=== PATIENT | female | born 2000 | race Caucasian/White ===

== ENCOUNTER 2021-03-10 08:55 | Emergency (ER) | payer OTHER ==
--- NOTE | 2021-03-10 09:19 | EDM.PDOC ---
ED HPI GENERAL MEDICAL PROBLEM - General Chief Complaint: Abdominal Pain Stated Complaint: PAIN W/ Time Seen by Provider: 03/10/21 09:14 Source of Information: Reports: Patient History Limitations: Reports: No Limitations - History of Present Illness INITIAL COMMENTS - FREE TEXT/NARRATIVE: pt is at 11 weeks with EDC september 28 , comes in with c/o sever right mila ed and epigastric abd pain since 4 am this morning that woke her from sleep, report recurrent emesis also diarrhea this morning, denies fever chills or any other associated sx or concerns. pt has hx of depression, anxiety and asthma. 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 Denies: Fever HEENT: Reports: No Symptoms Respiratory: Reports: No Symptoms Cardiovascular: Reports: No Symptoms GI/Abdominal: Reports: Abdominal Pain, Diarrhea, Nausea, Vomiting Musculoskeletal: Reports: No Symptoms Skin: Reports: No Symptoms Neurological: Reports: No Symptoms ED EXAM, GENERAL - Physical Exam Exam: See Below Exam Limited By: No Limitations General Appearance: Alert, No Apparent Distress Eye Exam: Bilateral Eye: Normal Inspection Nose: Normal Inspection, Normal Mucosa Throat/Mouth: Normal Inspection, Normal Oropharynx Head: Atraumatic, Normocephalic Neck: Normal Inspection, Supple Respiratory/Chest: No Respiratory Distress, Lungs Clear, No Accessory Muscle Use Cardiovascular: Normal Peripheral Pulses, Regular Rate, Rhythm, No Murmur GI/Abdominal: Normal Bowel Sounds, Soft, Tender (at right lower quadrant and at epigastic area. ) Extremities: Normal Inspection, Normal Range of Motion Neurological: Alert, Oriented, No Motor/Sensory Deficits Psychiatric: Anxious Skin Exam: Warm, Dry Course - Vital Signs Text/Narrative:: unremarkable labs were explained to pt , US shows no signs of acute abd , no ectopis , gestational sac is nl. pt has non specific symptoms of GI colic , she is comfortable here now after fluids, morphine and zofran. she is stable for discharge home with supportive mng. Last Recorded V/S: Last Vital Signs Temp 36.6 C 03/10/21 08:55 Pulse 72 03/10/21 08:55 Resp 20 03/10/21 08:55 BP 97/47 L 03/10/21 08:55 Pulse Ox 97 03/10/21 08:55 - Orders/Labs/Meds Orders: Active Orders 24 hr Category Date Time Status Abdomen Ltd [US] Stat Exams 03/10/21 14:23 Ordered OB 1st Tri Sgl 1st Gest [US] Stat Exams 03/10/21 14:23 Ordered HCG QUANTITATIVE [CHEM] Stat Lab 03/10/21 10:00 Received PATIENT RETYPE [BBK] Stat Lab 03/10/21 10:00 Results TYPE AND SCREEN [BBK] Stat Lab 03/10/21 10:00 Results Sodium Chloride 0.9% [Normal Saline] 1,000 ml Med 03/10/21 09:30 Active IV ASDIRECTED Medication Orders Sodium Chloride (Normal Saline) 1,000 mls @ 0 mls/hr IV ASDIRECTED CORTEZ Stop: 03/14/21 09:21 Last Admin: 03/10/21 11:51 Dose: 150 mls/hr Documented by: Infusion: 03/10/21 10:33 Dose: 999 mls/hr Documented by: Admin: 03/10/21 09:32 Dose: 999 mls/hr Documented by: AVELINA Labs: Laboratory Tests 03/10/21 03/10/21 03/10/21 Range/Units 09:52 09:52 09:52 WBC 9.7 (3.0-10.3) x10-3/uL RBC 4.35 (3.60-5.20) x10(6)uL Hgb 12.3 (11.4-15.5) g/dL Hct 37.4 (34.2-48.2) % MCV 86.0 (76.7-100.5) fL MCH 28.3 (23.9-33.9) pg MCHC 32.9 (31.9-34.8) g/dL RDW 13.7 (12.3-16.5) % Plt Count 213 (151-488) x10(3)uL MPV 9.7 (7.1-12.4) fL Neut % (Auto) 85.7 H (30.8-76.2) % Lymph % (Auto) 8.8 L (18.4-52.1) % [place] % (Auto) 4.8 (4.4-15.7) % Eos % (Auto) 0.4 L (0.6-8.1) % Baso % (Auto) 0.3 (0.2-1.5) % Neut # (Auto) 8.3 H (1.5-6.3) x10-3/uL Lymph # (Auto) 0.9 L (1.0-4.4) x10-3/uL [place] # (Auto) 0.5 (0.3-1.0) x10-3/uL Eos # (Auto) 0.0 (0.0-0.8) x10-3/uL Baso # (Auto) 0.0 (0.0-0.1) x10-3/uL Sodium 136 (135-145) mmol/L Potassium 3.7 (3.5-5.3) mmol/L Chloride 103 (100-110) mmol/L Carbon Dioxide 24 (21-32) mmol/L BUN 8 (7-18) mg/dL Creatinine 0.8 (0.55-1.02) mg/dL Est Cr Clr Drug Dosing 112.45 mL/min Estimated GFR (MDRD) > 60 (>60) BUN/Creatinine Ratio 10.0 (9-20) Glucose 109 (80-116) mg/dL Calcium 8.5 L (8.6-10.2) mg/dL Total Bilirubin 0.6 (0.1-1.3) mg/dL AST 13 (5-25) IU/L ALT 24 (12-36) U/L Alkaline Phosphatase 51 L (56-112) IU/L Total Protein 6.9 (6.0-8.0) g/dL Albumin 3.6 (3.5-5.2) g/dL Globulin 3.3 g/dL Albumin/Globulin Ratio 1.1 Amylase 58 (25-115) U/L Lipase 116 (73-393) U/L Urine Color (YELLOW) Urine Appearance (CLEAR) Urine pH (5.0-6.5) Ur Specific [place] (1.010-1.025) Urine Protein (NEGATIVE) mg/dL Urine Glucose (UA) (NORMAL) mg/dL Urine Ketones (NEGATIVE) mg/dL Urine Occult Blood (NEGATIVE) Urine Nitrite (NEGATIVE) Urine Bilirubin (NEGATIVE) Urine Urobilinogen (NEGATIVE) mg/dL Ur Leukocyte Esterase (NEGATIVE) Urine RBC (0-5) Urine WBC (0-5) Ur Squamous Epith Cells (NS,R,O) Amorphous Sediment Urine Bacteria (NS) Blood Type Gel Antibody Screen 03/10/21 03/10/21 Range/Units 10:00 10:36 WBC (3.0-10.3) x10-3/uL RBC (3.60-5.20) x10(6)uL Hgb (11.4-15.5) g/dL Hct (34.2-48.2) % MCV (76.7-100.5) fL MCH (23.9-33.9) pg MCHC (31.9-34.8) g/dL RDW (12.3-16.5) % Plt Count (151-488) x10(3)uL MPV (7.1-12.4) fL Neut % (Auto) (30.8-76.2) % Lymph % (Auto) (18.4-52.1) % [place] % (Auto) (4.4-15.7) % Eos % (Auto) (0.6-8.1) % Baso % (Auto) (0.2-1.5) % Neut # (Auto) (1.5-6.3) x10-3/uL Lymph # (Auto) (1.0-4.4) x10-3/uL [place] # (Auto) (0.3-1.0) x10-3/uL Eos # (Auto) (0.0-0.8) x10-3/uL Baso # (Auto) (0.0-0.1) x10-3/uL Sodium (135-145) mmol/L Potassium (3.5-5.3) mmol/L Chloride (100-110) mmol/L Carbon Dioxide (21-32) mmol/L BUN (7-18) mg/dL Creatinine (0.55-1.02) mg/dL Est Cr Clr Drug Dosing mL/min Estimated GFR (MDRD) (>60) BUN/Creatinine Ratio (9-20) Glucose (80-116) mg/dL Calcium (8.6-10.2) mg/dL Total Bilirubin (0.1-1.3) mg/dL AST (5-25) IU/L ALT (12-36) U/L Alkaline Phosphatase (56-112) IU/L Total Protein (6.0-8.0) g/dL Albumin (3.5-5.2) g/dL Globulin g/dL Albumin/Globulin Ratio Amylase (25-115) U/L Lipase (73-393) U/L Urine Color Yellow (YELLOW) Urine Appearance Cloudy (CLEAR) Urine pH 9.0 H (5.0-6.5) Ur Specific [place] 1.015 (1.010-1.025) Urine Protein Negative (NEGATIVE) mg/dL Urine Glucose (UA) Normal (NORMAL) mg/dL Urine Ketones 15 H (NEGATIVE) mg/dL Urine Occult Blood Negative (NEGATIVE) Urine Nitrite Negative (NEGATIVE) Urine Bilirubin Negative (NEGATIVE) Urine Urobilinogen Normal (NEGATIVE) mg/dL Ur Leukocyte Esterase Negative (NEGATIVE) Urine RBC 0-5 (0-5) Urine WBC 5-10 H (0-5) Ur Squamous Epith Cells Moderate H (NS,R,O) Amorphous Sediment Many Urine Bacteria Moderate H (NS) Blood Type A POSITIVE Gel Antibody Screen Negative Meds: Medications Generic Name Dose Route Start Last Admin Trade Name Freq PRN Reason Stop Dose Admin Sodium Chloride 1,000 mls @ 0 mls/hr 03/10/21 09:30 03/10/21 11:51 Normal Saline IV 03/14/21 09:21 150 mls/hr ASDIRECTED CORTEZ Administration KVO Discontinued Medications Generic Name Dose Route Start Last Admin Trade Name Freq PRN Reason Stop Dose Admin Morphine Sulfate 2 mg 03/10/21 09:21 03/10/21 09:33 Morphine 2 Mg/Ml Syringe IVPUSH 03/10/21 09:22 2 mg ONETIME ONE Administration Morphine Sulfate 4 mg 03/10/21 11:35 03/10/21 11:45 Morphine 4 Mg/Ml Vial IVPUSH 03/10/21 11:36 4 mg ONETIME ONE Administration Morphine Sulfate 4 mg 03/10/21 13:24 03/10/21 13:42 Morphine 4 Mg/Ml Vial IVPUSH 03/10/21 13:25 4 mg ONETIME ONE Administration Ondansetron HCl 4 mg 03/10/21 09:21 03/10/21 09:32 Ondansetron 4 Mg/2 Ml Sdv IVPUSH 03/10/21 09:22 4 mg ONETIME ONE Administration Departure - Departure Time of Disposition: 15:30 Disposition: Home, Self-Care 01 Clinical Impression: Colic in adult - Discharge Information Forms: ED Department Discharge Sepsis Event Note (ED) - Evaluation Sepsis Screening Result: No Definite Risk - Focused Exam Vital Signs: Vital Signs Temp Pulse Resp BP Pulse Ox 03/10/21 08:55 36.6 C 72 20 97/47 L 97 - My Orders Last 24 Hours: My Active Orders 03/10/21 09:30 Sodium Chloride 0.9% [Normal Saline] 1,000 ml IV ASDIRECTED 03/10/21 10:00 HCG QUANTITATIVE [CHEM] Stat PATIENT RETYPE [BBK] Stat TYPE AND SCREEN [BBK] Stat 03/10/21 14:23 Abdomen Ltd [US] Stat OB 1st Tri Sgl 1st Gest [US] Stat - Assessment/Plan Last 24 Hours: My Active Orders 03/10/21 09:30 Sodium Chloride 0.9% [Normal Saline] 1,000 ml IV ASDIRECTED 03/10/21 10:00 HCG QUANTITATIVE [CHEM] Stat PATIENT RETYPE [BBK] Stat TYPE AND SCREEN [BBK] Stat 03/10/21 14:23 Abdomen Ltd [US] Stat OB 1st Tri Sgl 1st Gest [US] Stat
[2021-03-10] MEDS ORDERED: Morphine 2 MG/ML SYRINGE IVPUSH ONE (09:21)
[2021-03-10] MEDS ORDERED: Ondansetron 4 MG/2 ML SDV IVPUSH ONE (09:21)
[2021-03-10] MEDS: Sodium Chloride 0.9% 1,000 ML IV SCH ×2 (09:32→11:51)
[2021-03-10] MEDS ORDERED: Morphine 4 MG/ML VIAL IVPUSH ONE ×2 (11:35→13:24)
--- NOTE | 2021-03-10 16:41 | US ---
INDICATION: Abdominal pain in right lower quadrant. RIGHT LOWER QUADRANT ULTRASOUND: Utilizing 2D real-time and color-flow imaging, examination of the right lower quadrant was obtained and revealed a large amount of intestinal gas overlying the area of the appendix. The appendix is not visualized. No fluid collections were identified. IMPRESSION: No evidence of appendicitis was identified. However, the study is limited by intestinal gas in that area in this patient. GLENNAD
--- NOTE | 2021-03-10 16:47 | US ---
INDICATION: Right lower quadrant abdominal pain. OB ULTRASOUND, FIRST TRIMESTER: Multiple ultrasonic images with M-mode were obtained and revealed a single intrauterine gestation with a yolk sac of 4.4 mm, appearing normal. heart rate was regular at 157 BPM. [place]-rump length was 4.9 cm, compatible with 11 weeks, 4 days gestational age. This is only three days ahead the LMP GA of 11 weeks, 1 day. The ROXIE by ultrasound was 09/25/21, compared with 09/28/21 for the LMP ROXIE. Extremities were unremarkable. No adnexal mass lesions or uterine masses were seen. No free fluid was noted in the posterior cul-de-sac or adnexal areas. The ovaries appeared normal with a possible corpus luteum cyst at the right ovary, not well seen. A normal amount of amniotic fluid level was seen. IMPRESSION: Normal IUP of 11 weeks, 4 days by ultrasound, which is only three days ahead of the LMP GA. ROXIE by ultrasound is 09/25/21, compared with the LMP ROXIE of 09/28/21. MTDD
== END 2021-03-10 16:16 | disposition home or self-care (01) ==
LOC: FB.ED 08:55
DX: O99.891 Other specified diseases and conditions complicating pregnancy (principal); N23 Unspecified renal colic; Z3A.11 11 weeks gestation of pregnancy
CPT/HCPCS: 36415; 76705; 76801; 80053; 81001; 82150; 83690; 84702; 85025; 86850; 86900; 86901; 96374; 96375; 96376; 99284-25; J2270; J2405; J7030

== ENCOUNTER 2022-06-08 06:27 | Day surgery (SDC) | payer OTHER ==
[~2022-06-08 06:27] MED LIST: Sodium Chloride 0.9% 10 ML Syringe FLUSH PRN; ceFAZolin 1 GM Vial IVPUSH ONE; ceFAZolin 1 GM in Sodium Chloride 0.9% 50 ML IV ONE
[2022-06-08] MEDS ORDERED: fentaNYL 100 MCG/2 ML SDV IV ONE (06:28)
[2022-06-08] MEDS ORDERED: Dexamethasone 4 MG/ML 5 ML MDV IVPUSH ONE (06:28)
[2022-06-08] MEDS ORDERED: Midazolam 1 MG/ML 2 ML SDV IV ONE (06:28)
[2022-06-08] MEDS ORDERED: diphenhydrAMINE 50 MG/ML SDV IVPUSH ONE (06:28)
[2022-06-08] MEDS ORDERED: Propofol 200 MG/20 ML SDV IV ONE ×2 (06:28)
[2022-06-08] MEDS ORDERED: Ondansetron 4 MG/2 ML SDV IVPUSH ONE (06:28)
[2022-06-08] MEDS ORDERED: Ketorolac 30 MG/ML SDV IVPUSH ONE (06:28)
[2022-06-08] MEDS: Lactated Ringers 1,000 ML IV SCH ×2 (07:15→09:22)
[2022-06-08] MEDS ORDERED: Bupivacaine 0.5% 50 ML MDV NERVRT ONE (07:46)
[2022-06-08] MEDS ORDERED: Lidocaine 1% with EPINEPHrine 1:100,000 20 ML MDV NERVRT ONE (07:46)
[2022-06-08] MEDS ORDERED: Acetaminophen/oxyCODONE 325-5 MG Tab PO ONE (09:34)
== END 2022-06-08 10:53 | disposition home or self-care (01) ==
LOC: FB.SDS 06:27
PROVIDERS: ATTEND Surgery
DX: K42.0 Umbilical hernia with obstruction, without gangrene (principal); J45.909 Unspecified asthma, uncomplicated; F90.9 Attention-deficit hyperactivity disorder, unspecified type; Z79.899 Other long term (current) drug therapy; Z91.048 Other nonmedicinal substance allergy status
CPT/HCPCS: 00750-QZ; 88302; A9270-GY; J0690; J1100; J1200; J1885; J2250; J2405; J2704; J3010; J3490; J7120